=== PATIENT | female | born 1960 | race Caucasian/White ===

== ENCOUNTER → 2016-07-17 | Outpatient (CLI) | payer OTHER ==
[~2016-07-17] MED LIST: NS 100 ML IV 100 ML IV ONE
[2016-07-17 08:51] LABS: CREATININE 0.76 mg/dL (0.55-1.02)
--- NOTE | 2016-07-17 11:44 | US ---
HISTORY: Thyroid nodule Study: Thyroid sonogram Comparison: None Technique: Multiple grayscale sonographic images were obtained. Findings: Right lobe measured 4.4 x 1.5 x 1.4 centimeters, the isthmus 1.4 millimeters, and the left lobe 3.5 x 1.5 x 1.5 centimeters. There is a 2.9 millimeter partially cystic benign nodule in the right thyro id lobe. No other thyroid nodules are identified. No masses are identified. IMPRESSION: No significant abnormality identified Reported By:
--- NOTE | 2016-07-18 15:47 | CT ---
HISTORY: Hoarseness, fullness and neck, thyroid nodule Study: CT soft tissue neck with contrast Comparison: Thyroid sonogram July 17, 2016 Technique: Axial post-contrast images with coronal and sagittal reformats. Dose reduction procedures were used with MA/kv adjusted for body size. Findings: The parotid and submandibular glands are symmetric and normal. No nasopharyngeal abnormality is iden tified. No definite parvez pharyngeal abnormality is identified. The piriform sinuses are clear. No def inite laryngeal abnormality is identified. Thyroid gland is normal in size. There is a 3 millimeter right thyroid nodule present this was noted on the recent sonogram. No definite upper mediastinal ly mphadenopathy is identified. Those portions of the upper lung mccarthy visualized were clear. No signi ficant skeletal abnormality is identified. No enlarged anterior posterior cervical chain lymph nodes are present. No supraclavicular lymphadenopathy is identified. No definite vascular abnormality is identified. No abnormal soft tissue masses are identified. IMPRESSION: No significant abnormality identified Reported By:
== END ==
LOC: RAD 08:16
PROVIDERS: ATTEND Internal Medicine
DX: E04.1 Nontoxic single thyroid nodule (principal)
CPT/HCPCS: 36415; 70491; 76536; 82565; 84520; A4222